=== PATIENT | female | born 1980 | race Caucasian/White ===

== ENCOUNTER 2024-07-15 23:19 | Inpatient (IN) | payer BC ==
[~2024-07-15] VITALS: Ht 157.5 cm; Wt 98.0 kg
[2024-07-16] VITALS (8 sets, daily range): BP systolic 104–141; BP diastolic 64–98; TEMP 97.3–98.8; O2SAT 93–99
[2024-07-16 00:21] LABS: BASOPHILS % (AUTO) 0.1 % (0.0-2.0); DIFFERENTIAL COMMENT 1; EOSINOPHILS % (AUTO) 0.1 % (0.0-7.0); HEMATOCRIT 34.6 % (31.2-41.9); HEMOGLOBIN 11.8 g/dL (10.9-14.3); LYMPHOCYTES # (AUTO) 1.7 K/uL (0.8-4.8); MEAN CORPUSCULAR HEMOGLOBIN 32.2 uug (24.7-32.8); MEAN CORPUSCULAR HGB CONC 34 g/dL (32.3-35.6); MEAN CORPUSCULAR VOLUME 94.4 fL (75.5-95.3); MONOCYTES # (AUTO) 1.6 K/uL (0.1-1.30); MONOCYTES % (AUTO) 7.3 % (0.0-11.0); NEUTROPHILS # (AUTO) 18.1 K/uL (1.8-8.9); NEUTROPHILS % (AUTO) 84.5 % (38.5-71.5); PLATELET COUNT (AUTO) 298 K/uL (179-408); RED BLOOD CELL COUNT(AUTO) 3.67 MIL/uL (3.63-4.92); WHITE BLOOD COUNT (AUTO) 21.5 K/uL (3.8-11.8)
[2024-07-16 00:29] LABS: CALCIUM 9.1 mg/dL (8.5-10.1); CARBON DIOXIDE 29 mmol/L (21-32); CHLORIDE 103 mmol/L (98-107); GLUCOSE 108 mg/dL (74-106); POTASSIUM 3.5 mmol/L (3.5-5.1); SODIUM SERUM 142 mmol/L (136-145); UREA NITROGEN, BLOOD 25 mg/dL (7-18)
[2024-07-16 00:46] LABS: ALANINE AMINOTRANSFERASE 30 U/L (14-59); ALBUMIN 3.3 g/dL (3.4-5.0); ALKALINE PHOSPHATASE 82 U/L (50-136); ASPARTATE AMINOTRANSFERASE 33 U/L (15-37); BILIRUBIN,DIRECT 0.1 mg/dL (0.0-0.2); BILIRUBIN,TOTAL 0.3 mg/dL (0.2-1.0); NT-PRO BNP 2005 pg/mL (0-125); TOTAL PROTEIN, SERUM 6.4 g/dL (6.4-8.2)
[2024-07-16] MEDS ORDERED: POTASSIUM CHLORIDE 20 MEQ TAB.PRT.SR ONE (01:02)
[2024-07-16] MEDS ORDERED: FUROSEMIDE 40 MG/4 ML VIAL ONE (01:02)
[2024-07-16] MEDS: POTASSIUM CHLORIDE 20 MEQ TAB.PRT.SR PO ONE (01:04)
[2024-07-16] MEDS: FUROSEMIDE 40 MG/4 ML VIAL IV ONE (01:28)
[2024-07-16] MEDS ORDERED: MORPHINE SULFATE 2 MG/1 ML DISP.SYRIN IVP PRN (01:30)
[2024-07-16] MEDS ORDERED: ALBUTEROL SULFATE 8 GM HFA.AER.AD IH PRN (01:30)
[2024-07-16] MEDS ORDERED: hydrALAZINE HCL 20 MG/1 ML VIAL IV PRN (01:30)
[2024-07-16] MEDS ORDERED: ONDANSETRON 4 MG/2 ML VIAL IV PRN (01:30)
[2024-07-16] MEDS ORDERED: levoFLOXacin 750MG/D5W 150 ML IV ONE (01:51)
[2024-07-16] MEDS: levoFLOXacin 750 MG/D5W 150 ML PIGGYBACK IV ONE (01:52)
[2024-07-16] MEDS: VANCOMYCIN IV 1,000 MG in IV DEXTROSE 5% 250 ML IV SCH (02:45)
[2024-07-16] MEDS ORDERED: VANCOMYCIN IV 200 ML ONE ×2 (03:32→03:48)
[2024-07-16] MEDS: CEFEPIME HCL 1 G in IV DEXTROSE 5% 50 ML IV SCH (06:35)
[2024-07-16] MEDS: FUROSEMIDE 40 MG/4 ML VIAL IV SCH (08:33)
[2024-07-16] MEDS: HEPARIN SODIUM,PORCINE 5,000 UNITS/ML VIAL SQ SCH (08:34)
[2024-07-16] MEDS: ACETAMINOPHEN 325 MG TABLET PO PRN (08:50)
[2024-07-16] MEDS: VANCOMYCIN IV 1,250 MG in IV DEXTROSE 5% 250 ML IV SCH (12:22)
[2024-07-16] MEDS ORDERED: SPIR25TA6 PO (15:44)
[2024-07-16] MEDS ORDERED: METO-356 PO (15:45)
[2024-07-16] MEDS ORDERED: DULO60CA64 PO (15:45)
[2024-07-16] MEDS ORDERED: LISI10TA29 PO (15:45)
[2024-07-16] MEDS ORDERED: GABA300C PO (15:45)
[2024-07-16] MEDS ORDERED: BUSP10TA3 PO (15:45)
[2024-07-16] MEDS ORDERED: ATOM40CA7 PO (15:45)
[2024-07-16] MEDS: ALBUTEROL SULFATE 2.5 MG/3 ML NEBU NEB PRN (15:58)
[2024-07-16] MEDS: HYDROCODONE/APAP 5-325MG TABLET PO PRN (17:45)
[2024-07-17 00:39] VITALS: BP 114/69; TEMP 98.2; O2SAT 94
[2024-07-17 06:00] VITALS: O2SAT 99
[2024-07-17 06:38] VITALS: BP 118/67; TEMP 98.5; O2SAT 95
[2024-07-17 07:25] VITALS: BP 121/71; TEMP 98.8; O2SAT 94
[2024-07-17 07:49] LABS: BASOPHILS % (AUTO) 0.6 % (0.0-2.0); EOSINOPHILS # (AUTO) 0.3 K/uL (0.0-0.7); EOSINOPHILS % (AUTO) 4.2 % (0.0-7.0); HEMATOCRIT 33.5 % (31.2-41.9); HEMOGLOBIN 11.7 g/dL (10.9-14.3); LYMPHOCYTES # (AUTO) 2.3 K/uL (0.8-4.8); LYMPHOCYTES % (AUTO) 33.9 % (20.5-51.5); MEAN CORPUSCULAR HEMOGLOBIN 32.7 uug (24.7-32.8); MEAN CORPUSCULAR HGB CONC 35 g/dL (32.3-35.6); MEAN CORPUSCULAR VOLUME 93.9 fL (75.5-95.3); MONOCYTES # (AUTO) 0.7 K/uL (0.1-1.30); MONOCYTES % (AUTO) 10.2 % (0.0-11.0); NEUTROPHILS # (AUTO) 3.4 K/uL (1.8-8.9); NEUTROPHILS % (AUTO) 51.1 % (38.5-71.5); PLATELET COUNT (AUTO) 258 K/uL (179-408); RED BLOOD CELL COUNT(AUTO) 3.57 MIL/uL (3.63-4.92); RED CELL DISTRIBUTION WIDTH 12.6 % (12.3-17.7); WHITE BLOOD COUNT (AUTO) 6.7 K/uL (3.8-11.8)
[2024-07-17 07:56] LABS: DIFFERENTIAL COMMENT 1
[2024-07-17 08:02] LABS: ALBUMIN 3.2 g/dL (3.4-5.0); BILIRUBIN,TOTAL 0.8 mg/dL (0.2-1.0); CALCIUM 8.6 mg/dL (8.5-10.1); POTASSIUM 3.3 mmol/L (3.5-5.1); TOTAL PROTEIN, SERUM 6.5 g/dL (6.4-8.2)
[2024-07-17] MEDS: BUMETANIDE 1 MG TABLET PO SCH (08:56)
[2024-07-17 11:30] VITALS: BP 107/76; TEMP 98.5; O2SAT 95
[2024-07-17] MEDS ORDERED: BUME1TAB8 PO (12:07)
[2024-07-17] MEDS ORDERED: BUME2TAB7 PO (12:07)
[2024-07-17] MEDS ORDERED: PRED20TA PO (12:07)
[2024-07-17] MEDS: POTASSIUM CHLORIDE 20 MEQ TAB.PRT.SR PO ONE (13:02)
== END 2024-07-17 12:55 | disposition home or self-care (01) | DRG 292 ==
LOC: ER 23:25 → TELE3 07-16 01:34
PROVIDERS: ADMIT Internal Medicine
PROC: 05HC33Z Insertion of Infusion Device into Left Basilic Vein, Percutaneous Approach (ICD-10-PCS; principal; 2024-07-16)
DX: I50.33 Acute on chronic diastolic (congestive) heart failure (principal); E46 Unspecified protein-calorie malnutrition; F90.9 Attention-deficit hyperactivity disorder, unspecified type; R60.1 Generalized edema; E66.9 Obesity, unspecified; Z68.39 Body mass index [BMI] 39.0-39.9, adult; J45.909 Unspecified asthma, uncomplicated; F43.10 Post-traumatic stress disorder, unspecified; F41.9 Anxiety disorder, unspecified; Z88.0 Allergy status to penicillin; Z88.5 Allergy status to narcotic agent; Z90.710 Acquired absence of both cervix and uterus; Z98.891 History of uterine scar from previous surgery; F17.210 Nicotine dependence, cigarettes, uncomplicated; T43.651S Poisoning by methamphetamines accidental (unintentional), sequela; E88.09 Other disorders of plasma-protein metabolism, not elsewhere classified
CPT/HCPCS: 36415; 71045; 71250; 83735; 84100; 84484; 85025; 85730; 93307; 94664; A4606; A4663; G0378; J0692; J1644; J1938; J1956; J2270; J3370; J3535; J7050